=== PATIENT | male | born 1960 ===

== ENCOUNTER 2018-12-11 20:25 | Emergency (ER) | payer MEDICAID ==
[2018-12-11 20:34] VITALS: BP 146/100
--- NOTE | 2018-12-11 20:46 | Emergency Department Report ---
Blank Doc - Documentation Documentation: This is a 58-year-old male that presents with URI symptoms. This initial assessment diagnostic orders/clinical plan/treatment(s) is/are subject to change based on patient's health status, clinical progression and re- assessment by fellow clinical providers in the ED. Further treatment and workup at subsequent clinical providers discretion. Patient/guardians urged not to elope from ED s their condition may be serious if not clinically assessed and managed. Initial orders include: 1-Patient sent to [facility] for further evaluation and treatment 2- cxr
--- NOTE | 2018-12-11 23:07 | XRay Report ---
FINAL REPORT PROCEDURE: CHEST. TECHNIQUE: PA AND LATERAL VIEWS. HISTORY: COUGH. COMPARISON: No prior studies are available for comparison. FINDINGS: The heart size is normal. There is mild tortuosity and calcification in the thoracic aorta. The lungs are clear and well expanded. There are no pleural effusions. The soft tissues and regional skeleton are unremarkable. IMPRESSION: No evidence of acute disease.
[2018-12-12] MEDS ORDERED: DECADRON IM ONE (00:58)
[2018-12-12] MEDS ORDERED: BENADRYL PO ONE (00:58)
[2018-12-12] MEDS ORDERED: REGLAN PO ONE (00:59)
[2018-12-12] MEDS ORDERED: TYLENOL PO ONE (01:00)
--- NOTE | 2018-12-12 03:00 | Emergency Department Report ---
- General Chief Complaint: Upper Respiratory Infection Stated Complaint: COLD SX Time Seen by Provider: 12/11/18 20:44 Source: patient Mode of arrival: Ambulatory Limitations: No Limitations - History of Present Illness Initial Comments: Patient 58-year-old white male who was recently diagnosed with influenza patient will continue Tamiflu patient should return cough congestion and sinus pressure 74/10 with left frontal headache this headache is consistent with headaches the past in location and intensity, cough productive yellow thick there is no fever no chills no n/v MD Complaint: fever, cough, sore throat, rhinorrhea, nasal congestion, sinus pain Onset/Timin -: week(s) Severity: moderate Severity scale (0 -10): 5 Quality: aching Consistency: constant Improves With: nothing Worsens With: nothing Context: sick contacts Associated Symptoms: fever, chills, headache, rhinorrhea, nasal congestion, sore throat, cough, ear pain Treatments Prior to Arrival: none - Related Data Previous Rx's Medication Instructions Recorded Last Taken Type ALBUTEROL Inhaler(NF) [VENTOLIN 2 puff IH Q4H PRN #1 inha 12/12/18 Unknown Rx Inhaler(NF)] Benzonatate [Tessalon Perles] 200 mg PO Q8HR PRN #30 capsule 12/12/18 Unknown Rx Fluticasone [Flonase] 1 spray NS QDAY #1 bottle 12/12/18 Unknown Rx Ibuprofen 800 mg PO TID PRN #30 tablet 12/12/18 Unknown Rx Allergies Allergy/AdvReac Type Severity Reaction Status Date / Time No Known Allergies Allergy Unverified 12/11/18 20:28 ED Review of Systems ROS: Stated complaint: COLD SX Other details as noted in HPI Constitutional: fever. denies: chills Eyes: denies: eye pain, eye discharge, vision change ENT: ear pain, throat pain, congestion Respiratory: cough Cardiovascular: denies: chest pain Endocrine: no symptoms reported Gastrointestinal: denies: abdominal pain, nausea, diarrhea Genitourinary: denies: urgency, dysuria Musculoskeletal: arthralgia Skin: denies: rash, lesions Neurological: headache. denies: weakness, numbness, paresthesias, confusion, vertigo Psychiatric: denies: anxiety, depression Hematological/Lymphatic: denies: easy bleeding, easy bruising ED Past Medical Hx - Past Medical History Hx Hypertension: Yes Hx Diabetes: Yes - Surgical History Past Surgical History?: No - Social History Smoking Status: Current Every Day Smoker Substance Use Type: None - Medications Home Medications: Home Medications Medication Instructions Recorded Confirmed Last Taken Type ALBUTEROL Inhaler(NF) [VENTOLIN 2 puff IH Q4H PRN #1 inha 12/12/18 Unknown Rx Inhaler(NF)] Benzonatate [Tessalon Perles] 200 mg PO Q8HR PRN #30 capsule 12/12/18 Unknown Rx Fluticasone [Flonase] 1 spray NS QDAY #1 bottle 12/12/18 Unknown Rx Ibuprofen 800 mg PO TID PRN #30 tablet 12/12/18 Unknown Rx ED Physical Exam - General Limitations: No Limitations General appearance: alert, in no apparent distress - Head Head exam: Present: atraumatic, normocephalic - Eye Eye exam: Present: normal appearance, PERRL, EOMI Pupils: Present: normal accommodation - ENT ENT exam: Present: mucous membranes moist, TM's normal bilaterally, normal external ear exam - Expanded ENT Exam Expanded Ear exam: Present: normal external inspection, other (bilat turbinate boggy clear post nasa i) Mouth exam: Present: tongue normal. Absent: trismus Throat exam: Positive: tonsillar erythema, tonsillomegaly, other (uvual midline no exudate no lesions no stridor no wheezing ). Negative: tonsillar exudate, R peritonsillar mass, L peritonsillar mass - Neck Neck exam: Present: normal inspection, full ROM. Absent: tenderness, meningismus, lymphadenopathy, thyromegaly - Respiratory Respiratory exam: Present: normal lung sounds bilaterally. Absent: respiratory distress, wheezes, stridor - Cardiovascular Cardiovascular Exam: Present: regular rate, normal rhythm, normal heart sounds. Absent: systolic murmur, diastolic murmur, rubs, gallop - GI/Abdominal GI/Abdominal exam: Present: soft, normal bowel sounds. Absent: distended, rebound, bruit, hernia - Rectal Rectal exam: Present: deferred - Extremities Exam Extremities exam: Present: normal inspection, full ROM, normal capillary refill. Absent: tenderness, joint swelling - Back Exam Back exam: Present: normal inspection, full ROM. Absent: tenderness, CVA tenderness (R), CVA tenderness (L), muscle spasm, paraspinal tenderness, rash noted - Neurological Exam Neurological exam: Present: alert, oriented X3, CN II-XII intact, normal gait, reflexes normal - Psychiatric Psychiatric exam: Present: normal affect, normal mood - Skin Skin exam: Present: warm, dry, intact, normal color. Absent: rash ED Course Vital Signs 12/11/18 20:33 Temperature 97.9 F Pulse Rate 88 Respiratory 18 Rate Blood Pressure 146/100 O2 Sat by Pulse 96 Oximetry ED Medical Decision Making - Radiology Data Radiology results: report reviewed, image reviewed FINAL REPORT PROCEDURE: CHEST. TECHNIQUE: PA AND LATERAL VIEWS. HISTORY: COUGH. COMPARISON: No prior studies are available for comparison. FINDINGS: The heart size is normal. There is mild tortuosity and calcification in the thoracic aorta. The lungs are clear and well expanded. There are no pleural effusions. The soft tissues and regional skeleton are unremarkable. IMPRESSION: No evidence of acute disease. Transcribed By: [facility] Dictated By: NEREIDA LOPEZ MD Electronically Authenticated By: NEREIDA LOPEZ MD Signed Date/Time: 12/11/182306 DD/ 05 TD/TT: 12/11/182305 - Medical Decision Making this is bronchitis versus URI no wheezing noted on exam no resp distress no fever plan: ibuprofen, tessalon pearls, albuterol inhaler, follow up pcp in 2-3 days return to ed if symptoms worsen. pt verbalized agreement and understanding of same. Critical care attestation.: If time is entered above; I have spent that time in minutes in the direct care of this critically ill patient, excluding procedure time. ED Disposition Clinical Impression: Bronchitis URI (upper respiratory infection) Qualifiers: URI type: unspecified viral URI Qualified Code(s): J06.9 - Acute upper respiratory infection, unspecified Disposition: TO HOME OR SELFCARE Is pt being admited?: No Does the pt Need Aspirin: No Condition: Stable Instructions: Acute Bronchitis (ED), Upper Respiratory Infection (ED) Prescriptions: ALBUTEROL Inhaler(NF) [VENTOLIN Inhaler(NF)] 2 puff IH Q4H PRN #1 inha PRN Reason: shortness of breath/wheezing Benzonatate [Tessalon Perles] 200 mg PO Q8HR PRN #30 capsule PRN Reason: Cough Fluticasone [Flonase] 1 spray NS QDAY #1 bottle Ibuprofen 800 mg PO TID PRN #30 tablet PRN Reason: pain fever Referrals: [facility] MD ANILA [Primary Care Provider] - 3-5 Days Forms: Work/School Release Form(ED) Time of Disposition: 03:12
== END 2018-12-12 02:53 | disposition home or self-care (01) ==
LOC: ED 20:25
DX: J40 Bronchitis, not specified as acute or chronic (principal); J06.9 Acute upper respiratory infection, unspecified; I10 Essential (primary) hypertension; E11.9 Type 2 diabetes mellitus without complications; F17.200 Nicotine dependence, unspecified, uncomplicated
CPT/HCPCS: 71046; 96372; 99283; J1100